=== PATIENT | female | born 1985 | race Caucasian/White ===

== ENCOUNTER 2018-11-16 05:42 | Inpatient (IN) | payer SELFPAY ==
[~2018-11-16 05:42] MED LIST: Buffered Lidocaine 1% SYRIN* 1 ML/SYRINGE INTRADERM ONE
--- OUTSIDE RECORDS SUMMARY | 2018-11-16 05:45 | XMS REPORT | Summary of Care ---
:1985 Author Organization [facility] Address [address] [facility] [place] [address] Care Team Providers Name Role Phone Brooklyn Fuentes MD Primary Care Provider Reason for Visit Reason Comments Follow Up 2 month Depression Sees therapist Anxiety Panic Attack Grace's Thyroiditis Sees Dr. See Dyslipidemia Obesity Encounter Details Date Type Department Care Team Description 10/21/2018 Office Visit [facility] Brooklyn Fuentes MD Weight loss counseling, encounter for (Primary Dx); Medicine [address] BMI 31.0-31.9,adult; [address] [facility] [address] Depression with anxiety; [place] [address] [place], [place] Dyslipidemia [phone] [id number] [phone] Allergies Active Allergy Reactions Severity Noted Date Comments Bupropion Other 08/17/2018 dizziness , headache , foggy and off balance documented as of this encounter (statuses as of 10/21/2018) Medications Medication Sig Dispensed Refills Start Date End Date Status Phentermine HCl 15 MG Take 1 Cap by 14 Cap 0 10/21/2018 Active Oral CapIndications: mouth DAILY. Max Weight loss Daily Amount: 15 counseling, encounter mg. for Phentermine HCl 37.5 Take 1 Cap by 30 Cap 5 10/21/2018 Active MG Oral mouth DAILY. Max CapIndications: Weight Daily Amount: 37.5 loss counseling, mg. 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 Malaise and fatigue 06/07/2018 care and examination 03/16/2018 Postoperative scar 03/15/2018 Depression with anxiety 03/19/2015 Metrorrhagia 10/02/2014 Shoulder instability 07/21/2013 Panic attacks 06/13/2013 GERD (gastroesophageal reflux disease) 2008 Anemia Dyslipidemia Metabolic syndrome BMI 31.0-31.9,adult Acne Thyroid antibody positive documented as of this encounter (statuses as of 10/21/2018) Resolved Problems Problem Noted Date Resolved Date Cigarette smoker 10/02/2014 05/21/2017 Right shoulder pain 07/21/2013 10/02/2014 SASKIA (generalized anxiety disorder) 2008 05/21/2017 CESAR (obstructive sleep apnea) 2008 05/21/2017 Nicotine dependence 2008 10/02/2014 Nicotine dependence 04/23/2009 Obesity 04/23/2009 BMI 29.0-29.9,adult 03/17/2013 Overview: BMI 29.98 BMI 28.0-28.9,adult 06/13/2013 Overview: BMI 28.34 BMI 27.0-27.9,adult 04/26/2014 Overview: BMI 27.87 BMI 29.0-29.9,adult 10/21/2018 Overview: BMI 29.87 documented as of this encounter (statuses as of 10/21/2018) Immunizations Name Administration Dates Next Due DTAP/HEPB/IPV Combined Vaccine 09/07/1991, 03/31/1990, 10/21/1989, 1985 HIB 10/21/1998, 11/14/1990 Influenza (IM) W/Pres 11/23/2013 MMR VACCINE 09/07/1991, 10/21/1989 Poliomyelitis vaccine 09/07/1991, 03/12/1990, 10/10/1989, 1986 TETANUS & DIPHTHERIA TOXOID (OVER 7 05/17/1998 YRS) Tuberculin Skin Test 10/10/1991 documented as of this encounter Social History Tobacco Use Types Packs/Day Years Used Date Former Smoker 0.5 Smokeless Tobacco: Never Used Tobacco Cessation: Counseling Given: Yes Comments: social Alcohol Use Drinks/Week oz/Week Comments Yes occ Sex Assigned at Date Recorded Not on file Job Start Date Occupation Industry Not on file Not on file Not on file Travel History Travel Start Travel End No recent travel history available. documented as of this encounter Last Filed Vital Signs Vital Sign Reading Time Taken Comments Blood Pressure 112/74 10/21/2018 9:09 AM EDT Pulse 84 10/21/2018 9:09 AM EDT Temperature 36.4 10/21/2018 9:09 AM EDT C (97.5 F) Respiratory Rate - - Oxygen Saturation 98% 10/21/2018 9:09 AM EDT Inhaled Oxygen Concentration - - Weight 89.8 kg (198 lb) 10/21/2018 9:09 AM EDT Height 167.6 cm (5' 6") 10/21/2018 9:09 AM EDT Body Mass Index 31.96 10/21/2018 9:09 AM EDT documented in this encounter Patient Instructions Patient InstructionsBrooklyn Fuentes MD - 10/21/2018 9:15 AM EDTRegular exercise program about 30 minutes or longer of brisk walking daily for 5 days weekly, or more frequent if tolerable is recommended as physiologic means to achieve weight loss. Optimal BMI <30 and [place] BMI <25. Watch your Salt / Sodium and your Sugar intake. According to 2015 Dietary Guidelines - Consume a diet rich in fruits and vegetables, whole grains, low-fat dairy, seafood, legumes, and nuts and Consume diet low in red or processed meats, sugar-sweetened foods and beverages, and refined grains. Limit your daily consumption of added sugars (<10% of calories), saturated fat (<10% of calories), and dietary sodium (<2300 mg). Half of all grain intake should come from whole grains. Healthy eating is like following a "RECIPE". The three major components for healthy eating are; Portion control, Variety, Timing of meals and between meal eating. It is important for you to stop starving yourself. Starving leads to malnutrition, inability to lose weight by overeating late in the day. Do Not skip meals. Eating every three to four hours will stop your body from thinking it is starving! KEEP FOOD RECORDS AND BRING THEM TO NEXT APPOINTMENT. Save one or two food choices from your meal and consume them mid meal. This will prevent low blood sugars and help with appetite control. Omit the junk food from your home. If you don't buy it, you will not be tempted to eat it. Eat from a 9 inch dinner plate and drink from 8 oz glasses. This one step will reduce your calorie intake at each meal. All beverages used for thirst must be calorie free. Adequate water intake is two quarts per day, unless advised otherwise. Omit the regular soda and beverages such as: monster drinks, this will greatly reduce your calorie intake. Avoid drinking your foods (omit fruit and vegetables juices). documented in this encounter Progress Notes Brooklyn Fuentes MD - 10/21/2018 9:15 AM EDT PATIENT: Manny Epperson : 1985 DATE OF SERVICE: 10/21/2018 Chief Complaint Patient presents with Follow Up 2 month Depression Sees therapist Anxiety Panic Attack Grace's Thyroiditis Sees Dr. See Dyslipidemia Obesity SUBJECTIVE Manny Epperson is a 33-y.o. Presents for F/U. reported concern about nervious and anxious over eating which is stressing her out. Currently she denies cough, chest pain, dyspnea, abdominal or flank pain, nausea or vomiting, change in bowel habits, dysuria, frequency or hematuria. no fever or chills she denies having any symptoms of insomnia, depressed mood, lack of ambition , loss of interest or pleasure to enjoy things , feelings of worthlessness / guilt , hopelessness, impaired memory or difficulty concentrating. Past Medical History: Diagnosis Date Acne Anemia BMI 29.0-29.9,adult BMI 29.87 Dyslipidemia SASKIA (generalized anxiety disorder) 2008 GERD (gastroesophageal reflux disease) 2008 Metabolic syndrome Nicotine dependence 2008 CESAR (obstructive sleep apnea) 2008 CESAR (obstructive sleep apnea) 12/21/08 mild Panic attacks 06/13/2013 Thyroid antibody positive Outpatient Encounter Medications as of 10/21/2018 Medication Sig Dispense Refill Phentermine HCl 15 MG Oral Cap Take 1 Cap by mouth DAILY. Max Daily Amount: 15 mg. 14 Cap 0 Phentermine HCl 37.5 MG Oral Cap Take 1 Cap by mouth DAILY. Max Daily Amount: 37.5 mg. Start after 15mg capsules done 30 Cap 5 No facility-administered encounter medications on file as of 10/21/2018. Past Surgical History: Procedure Laterality Date SECTION NOS EGD (PEÑA / NON PEÑA) 3. MI REMOVAL OF OVARIAN CYST(S) MI SHOULDER SURG PROC UNLISTED Allergies Allergen Reactions Wellbutrin [Bupropion] Other dizziness , headache , foggy and off balance Social History Tobacco Use Smoking status: Former Smoker Packs/day: 0.50 Smokeless tobacco: Never Used Tobacco comment: social Substance Use Topics Alcohol use: Yes Comment: occ Drug use: No Family History Problem Relation Age of Onset Allergies Mother Psychiatry Mother BPD Diabetes Maternal Grandmother ROS all other review of systems are negative per HPI OBJECTIVE BP 112/74 (BP Location: Right arm, Patient Position: Sitting) Pulse 84 Temp 97.5 F (36.4 C) (Tympanic) Ht 5' 6" (1.676 m) Wt 198 lb (89.8 kg) LMP 10/09/2018 (Exact Date) SpO2 98% BMI 31.96 kg/m2 GENERAL: alert,oriented,appears not toxic, not dehydrated, not diaphoretic and not distressed. OROPHARYNX: Normal. EYE: is normal -sclera white,conjunctiva anicteric LUNG: clear to auscultation bilaterally. HEART: regular rate and rhythm, S1, S2 normal, no murmur, click, rub or gallop ABDOMEN: soft, non-tender. No masses, no organomegaly. EXTREMITIES: No clubbing,cyanosis or edema. ICD-9-CM ICD-10-CM 1. Weight loss counseling, encounter for : EKG: normal EKG, normal sinus rhythm , unchanged from previous tracings on 01/29/15, rate = 62. Healthy lifestyle changes and weight loss are recommended I will start V65.3 Z71.3 Phentermine HCl 15 MG Oral Cap Phentermine HCl 37.5 MG Oral Cap 2. BMI 31.0-31.9,adult; as above V85.31 Z68.31 3. Depression with anxiety : well controlled will continue the current Rx. regimen 300.4 F41.8 AMBULATORY 12 LEAD EKG (GLOBAL) 4. Dyslipidemia : Healthy lifestyle changes and weight loss are recommended 272.4 E78.5 The most recent last blood work are reviewed. I have reviewed the patient's medical history in detail and updated the computerized patient record. Plan Orders Placed This Encounter AMBULATORY 12 LEAD EKG (GLOBAL) Phentermine HCl 15 MG Oral Cap Phentermine HCl 37.5 MG Oral Cap Patient Instructions Regular exercise program about 30 minutes or longer of brisk walking daily for 5 days weekly, or more frequent if tolerable is recommended as physiologic means to achieve weight loss. Optimal BMI <30 and [place] BMI <25. Watch your Salt / Sodium and your Sugar intake. According to 2015 Dietary Guidelines - Consume a diet rich in fruits and vegetables, whole grains, low-fat dairy, seafood, legumes, and nuts and Consume diet low in red or processed meats, sugar-sweetened foods and beverages, and refined grains. Limit your daily consumption of added sugars (<10% of calories), saturated fat (<10% of calories), and dietary sodium (<2300 mg). Half of all grain intake should come from whole grains. Healthy eating is like following a "RECIPE". The three major components for healthy eating are; Portion control, Variety, Timing of meals and between meal eating. It is important for you to stop starving yourself. Starving leads to malnutrition, inability to lose weight by overeating late in the day. Do Not skip meals. Eating every three to four hours will stop your body from thinking it is starving! KEEP FOOD RECORDS AND BRING THEM TO NEXT APPOINTMENT. Save one or two food choices from your meal and consume them mid meal. This will prevent low blood sugars and help with appetite control. Omit the junk food from your home. If you don't buy it, you will not be tempted to eat it. Eat from a 9 inch dinner plate and drink from 8 oz glasses. This one step will reduce your calorie intake at each meal. All beverages used for thirst must be calorie free. Adequate water intake is two quarts per day, unless advised otherwise. Omit the regular soda and beverages such as: monster drinks, this will greatly reduce your calorie intake. Avoid drinking your foods (omit fruit and vegetables juices). Brooklyn Fuentes MD 10/21/2018 17:25 documented in this encounter Plan of Treatment Date Type Specialty Care Team Description 11/09/2018 Office Visit Internal Medicine Brooklyn Fuentes MD [address] [place] [address] [phone] Name Type Priority Associated Diagnoses Order Schedule AMBULATORY 12 LEAD EKG EKG Routine Depression with anxiety Ordered: 2018 (GLOBAL) Health Maintenance Due Date Last Done Comments DEPRESSION SCREENING 05/11/2019 05/10/2018, 05/10/2018 PAP SMEAR 08/18/2019 10/30/2014, 07/30/2011, Postponed from 05/20/2010, Additional 10/30/2017 (Other) history exists INFLUENZA VACCINE (#1) 2019 11/23/2013 Postponed from 10/10/2018 (Patient refused) LIPID DISORDER SCREENING 05/11/2023 05/10/2018, 02/08/2008 HPV IMMUNIZATION SERIES Aged Out No longer eligible based on patient's age to complete this topic MENINGOCOCCAL VACCINE IMM Aged Out No longer eligible based on patient's age to complete this topic PNEUMOCOCCAL 0-64 YRS Aged Out No longer eligible based on patient's age to complete this topic documented as of this encounter Goals Goal Patient Goal Associated Recent Patient-Stated? Author Type Problems Progress Lifestyle - Lifestyle No Alfredo, Current Smoker MD Brooklyn Note: Smoking Cessation Plan Discussed smoking cessation with patient. Patient readiness to quit:no Discussed smoking cessation plan according to AHRQ guidelines:counseled patient on the risks of tobacco use My Quit Plan: Notify my friends, family, and co-workers about decision to quit. Will ask for their support and understanding Remove tobacco products from my environment. I will ask people not to smoke around me or in my home. I will anticipate challenges at the beginning and will try not to be discouraged. To remember the benefits of quitting such as improved health, feeling better about myself, saving money, etc. Reducing stressors and avoiding triggers are essential keys to my success Finding ways to distract myself when I have the urge to smoke such as taking a walk, reading, playing a board game, putting together a puzzle, etc. Taking medications as my healthcare provider has advised to help alleviate the urge to smoke. If I am unable to take the medication, I will discuss further with my healthcare provider. Recognize reasons for relapse in my past attempts. What did and did not work for me Consider connecting with group, individual, or telephone counseling documented as of this encounter Results Not on filedocumented in this encounter Visit Diagnoses Diagnosis Weight loss counseling, encounter for - Primary Dietary surveillance and counseling BMI 31.0-31.9,adult Body Mass Index 31.0-31.9, adult Depression with anxiety Dysthymic disorder Dyslipidemia Other and unspecified hyperlipidemia documented in this encounter brian Williamson y (Home) [phone] [facility] ([place]) [place] [address] documented as of this encounter
[2018-11-16] MEDS ORDERED: Sodium Citrate/Citric Acid* 15 ML UDC PO ONE (06:00)
[2018-11-16] MEDS ORDERED: Lactated Ringers 1000 ML Bag* 1,000 ML IV SCH (06:00)
[2018-11-16] MEDS ORDERED: Ondansetron INJ* 2 MG/ML VIAL ONE ×2 (06:17→06:49)
[2018-11-16] MEDS ORDERED: ceFAZolin 2 GM in NS PREMIX(*) 0 GM/0 ML BAG IVPB ONE (06:17)
[2018-11-16] MEDS ORDERED: Scopolamine 1.5 mg* PATCH ONE ×2 (06:17→06:49)
[2018-11-16] MEDS ORDERED: Dexamethasone IV* 4 MG/ML 1 ML (4 MG) ONE ×2 (06:17→06:49)
[2018-11-16] MEDS ORDERED: ceFAZolin 2 GM in NS PREMIX(*) 2 GM/100 ML BAG IVPB ONE (06:49)
[2018-11-16] MEDS ORDERED: Sodium Citrate/Citric Acid* 15 ML UDC ONE ×2 (06:49→06:53)
[2018-11-16] MEDS ORDERED: Methylene Blue 0.5 %* 50 MG/10 ML AMP IV ONE (07:11)
[2018-11-16] MEDS ORDERED: Lidocaine 1% w EPI 1:100,000* MDV 20 ML VIAL ONE (07:11)
[2018-11-16] MEDS ORDERED: Bupivacaine 0.25% SDV PF* 10 ML VIAL INJ ONE ×2 (07:11→07:22)
[2018-11-16] MEDS ORDERED: fentaNYL* 50 MCG/ML 2 ML VIAL (100 MCG VIAL) ONE ×4 (07:21→12:25)
[2018-11-16] MEDS ORDERED: Midazolam* 1 MG/ML 2 ML VIAL (2 MG) ONE (07:21)
[2018-11-16] MEDS ORDERED: Rocuronium* 10 MG/ML VIAL ONE ×2 (07:22→09:15)
[2018-11-16] MEDS ORDERED: Propofol* 10 MG/ML 20 ML BTL ONE (07:22)
[2018-11-16] MEDS ORDERED: Lidocaine 2% PF * 5 ML VIAL ONE (07:22)
[2018-11-16] MEDS ORDERED: KETAMINE HCL* 50 MG/ML 10 ML VIAL ONE (07:55)
[2018-11-16] MEDS ORDERED: Acetaminophen IV 1GM/100ML * 1,000 MG/100 ML VIAL IVPB ONE (08:33)
[2018-11-16] MEDS ORDERED: Naloxone* 0.4 MG/ML 1 ML VIAL IV PRN (08:33)
[2018-11-16] MEDS ORDERED: DiMENhydriNATE IV* 50 MG/ML VIAL IV PUSH PRN (08:33)
[2018-11-16] MEDS ORDERED: Glycopyrrolate IV* 0.2 MG/ML 1 ML VIAL ONE (10:18)
[2018-11-16] MEDS ORDERED: Neostigmine Methylsulfate* 3 MG/3 ML SYRINGE ONE (10:18)
[2018-11-16] MEDS ORDERED: Ketorolac INJ* 30 MG/ML 1 ML VIAL ONE (10:23)
[2018-11-16] MEDS ORDERED: Ondansetron INJ* 2 MG/ML VIAL IV PRN (11:13)
[2018-11-16] MEDS ORDERED: Acetaminophen TAB* 325 MG PO PRN (11:13)
[2018-11-16] MEDS ORDERED: Al Hydrox/Mg Hydrox/Simet LIQ* 30 ML UDC PO PRN (11:13)
[2018-11-16] MEDS ORDERED: Magnesium Hydroxide LIQ* 30 ML UDC PO PRN (11:13)
[2018-11-16] MEDS ORDERED: diPHENhydraMINE PO* 25 MG PO PRN (11:13)
[2018-11-16] MEDS ORDERED: DiMENhydriNATE IV* 50 MG/ML VIAL ONE (11:30)
[2018-11-16] MEDS: fentaNYL* 50 MCG/ML 2 ML VIAL (100 MCG VIAL) IV PRN ×3 (11:33→12:26)
[2018-11-16] MEDS ORDERED: Acetaminophen IV 1GM/100ML * 100 ML ONE (12:17)
[2018-11-16] MEDS ORDERED: oxyCODONE/Acetamin 5/325 MG* TAB ONE (12:25)
[2018-11-16] MEDS: HYDROcodone/ACETAMIN 5-325 MG* 1 TAB PO PRN ×3 (12:33→18:21)
[2018-11-16] MEDS ORDERED: HYDROcodone/ACETAMIN 5-325 MG* 1 TAB ONE (12:33)
[2018-11-16] MEDS: NS 0.9% 1000 ML** 1,000 ML IV SCH (13:43)
[2018-11-16] MEDS: HYDROmorphone INJ* 0.5 MG/0.5 ML SYRINGE IV SLOW PU PRN ×2 (14:18→18:22)
[2018-11-16] MEDS: Docusate CAP* 100 MG PO SCH (22:44)
[2018-11-17] MEDS: HYDROcodone/ACETAMIN 5-325 MG* 1 TAB PO PRN ×3 (00:06→11:27)
[2018-11-17] MEDS: HYDROmorphone INJ* 0.5 MG/0.5 ML SYRINGE IV SLOW PU PRN (01:37)
[2018-11-17] MEDS: NS 0.9% 1000 ML** 1,000 ML IV SCH (03:02)
[2018-11-17] MEDS: Docusate CAP* 100 MG PO SCH (07:30)
--- NOTE | 2018-11-17 08:01 | PN ---
Progress Note - Progress Note Date of Service: 11/17/18 SOAP: Discharge Note Subjective: Feeling well. Pain under control. Objective: Afebrile, VSS VAC Prevena in place. Abdomen soft, no signs of hematoma. LILY's moderate serosanguinous. Assessment: Doing well POD #1. Plan: Discharge with VAC and LILY's in place. Instructions given. Follow up in my office in 5 days.
[2018-11-17] MEDS ORDERED: Ascorbic Acid TAB* 500 MG PO SCH (09:00)
[2018-11-17] MEDS ORDERED: Influenza VAC *QUAD* 2019-20* 0.5 ML SYRINGE IM ONE (11:00)
[2018-11-17 11:23] VITALS: BP 103/52
--- NOTE | 2018-11-26 09:46 | DS ---
DISCHARGE SUMMARY: DATE OF ADMISSION: 11/16/18 DATE OF DISCHARGE: 11/17/18 PRINCIPAL DIAGNOSIS: Cosmetic surgery. CONDITION AT DISCHARGE: Doing well. DISPOSITION: Home. PROCEDURES: Abdominoplasty, date 11/16/18. SUMMARY: The patient is a 33-year-old white female who presented with complaints of loose skin on her abdomen status post 3 pregnancies delivered by sections. She was taken to the operating room on 11/16/18 and underwent a full abdominoplasty, which she tolerated well. She had an uncomplicated postoperative convalescent course in the hospital. By postoperative day 1, she was alert and ambulatory and wanted to go home. Her abdomen was noted to be soft and flat with a VAC PREVENA dressing in place. She was discharged home with the VAC Prevena and two Ajay-Baez drains in place. Arrangements were made for followup in my office the following week. She was given instructions including activity level, wound care, medication, and followup. [id number]/[facility] #: [id number] MAGALY
== END 2018-11-17 12:21 | disposition home or self-care (01) | DRG 572 ==
LOC: AA 05:42 → SSU 11:13
PROVIDERS: ADMIT Plastic Surgery; ATTEND Plastic Surgery
PROC: 0JB80ZZ Excision of Abdomen Subcutaneous Tissue and Fascia, Open Approach (ICD-10-PCS; principal; 2018-11-16 07:30)
DX: Z41.1 Encounter for cosmetic surgery (principal); F32.9 Major depressive disorder, single episode, unspecified; E65 Localized adiposity; L57.4 Cutis laxa senilis; F41.9 Anxiety disorder, unspecified; Z90.49 Acquired absence of other specified parts of digestive tract; Z90.79 Acquired absence of other genital organ(s); Z87.891 Personal history of nicotine dependence; Z82.49 Family history of ischemic heart disease and other diseases of the circulatory system
CPT/HCPCS: 81025; 90686; A9270-GY; A9272-GY; J0690; J1100; J1170; J1240; J1885; J2250; J2405; J2704; J2710; J3010; J3490